=== PATIENT | male | born 1990 | race Caucasian/White ===

== ENCOUNTER 2021-05-22 17:22 | Emergency (ER) | payer SELFPAY ==
--- OUTSIDE RECORDS SUMMARY | 2021-05-22 17:24 | XMS REPORT | Continuity of Care Document ---
:1990 Author Organization [facility] t Address [address] [place] [address] Care Team Providers Name Role Phone Unavailable Unavailable Unavailable Problems This patient has no known problems. Allergies, Adverse Reactions, Alerts This patient has no known allergies or adverse reactions. Medications This patient has no known medications. Procedures This patient has no known procedures. Results This patient has no known results.
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
[2021-05-22] MEDS ORDERED: MORPHINE 4 MG/ML SYR ONE (19:23)
[2021-05-22] MEDS ORDERED: ONDANSETRON 4 MG/2 ML VIAL ONE (19:23)
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
[2021-05-22] MEDS ORDERED: KETOROLAC 30 MG/ML INJ ONE (21:52)
[2021-05-22] MEDS ORDERED: DIAZEPAM 5 MG TABLET ONE (21:52)
[2021-05-22 22:30] VITALS: O2SAT 100
[2021-05-22 22:33] VITALS: BP 136/75; TEMP 99.6
== END 2021-05-22 21:50 | disposition home or self-care (01) ==
LOC: ER 17:22
DX: S32.029A Unspecified fracture of second lumbar vertebra, initial encounter for closed fracture (principal); S32.039A Unspecified fracture of third lumbar vertebra, initial encounter for closed fracture; S32.049A Unspecified fracture of fourth lumbar vertebra, initial encounter for closed fracture; V28.0XXA Motorcycle driver injured in noncollision transport accident in nontraffic accident, initial encounter; Z88.0 Allergy status to penicillin
CPT/HCPCS: 70450; 71045; 71260; 72125; 74177; 96374; 96375; 99284; J2405; Q9967